=== PATIENT | female | born 1965 | race Caucasian/White ===

== ENCOUNTER 2018-05-27 02:50 | Outpatient (CLI) | payer MEDICAID, SELFPAY ==
[2018-05-27 07:39] LABS: Abs Immature Grans 0.01 k/cumm (0.0-0.09); Absolute Basophil Count 0.03 k/cumm (0.0-0.2); Absolute Eosinophil Count 0.25 k/cumm (0.0-0.7); Absolute Lymphocyte Count 1.74 k/cumm (1.2-3.4); Absolute Neutrophil Count 3.31 k/cumm (1.2-6.7); Basophils % 0.5; Eosinophils % 4.3; HCT 44.4 % (36.0-46.0); HGB 14.9 g/dL (12.0-15.5); Immature Grans % 0.2; Lymphocytes % 29.8; Mean Corp. HGB Concentration 33.6 g/dL (32.0-36.0); Mean Corpuscular Hemoglobin 32.6 pg (27.0-33.0); Mean Corpuscular Volume 97.2 fL (80-95); Mean Platelet Volume 10.7 fL (8.0-11.0); Monocytes % 8.6; Neutrophils % 56.6; Platelet Count 229 x1000/uL (130-400); RBC 4.57 m/cumm (4.00-5.20); RBC Distribution Width 13.1 % (11.7-14.6); White Blood Cell Count 5.84 k/cumm (4.4-10.8)
[2018-05-27 08:20] LABS: ALT 22 U/L (12-78); AST 18 U/L (15-37); Albumin 3.5 g/dL (3.4-5.0); Alkaline Phosphatase 109 U/L (46-116); BUN 11 mg/dL (7-18); Bilirubin, Total 0.5 mg/dL (0.2-1.0); CREATININE 0.81 mg/dL (0.55-1.02); Calcium 8.6 mg/dL (8.5-10.1); Chloride 106 mmol/L (98-107); Cholesterol 248 mg/dL (50-200); Glucose 92 mg/dL (70-100); HDL Cholesterol 56 mg/dL (40-60); LDL CHOLESTEROL 169 mg/dL (<100); Potassium 4.2 mmol/L (3.5-5.1); Sodium 144 mmol/L (136-145); TSH (W/Ref FT4) 1.85 uIU/mL (0.358-3.74); Total Protein 6.2 g/dL (6.4-8.2); Triglyceride 124 mg/dL (30-150)
== END 2018-05-27 03:10 ==
PROVIDERS: PCP Nurse Practitioner Family; Visit Provider Nurse Practitioner Family
DX: Z13.1 Encounter for screening for diabetes mellitus (principal); R06.09 Other forms of dyspnea; E78.5 Hyperlipidemia, unspecified; R63.5 Abnormal weight gain
CPT/HCPCS: 36415; 80053; 80061; 83721; 84443; 85025

== ENCOUNTER 2018-06-03 01:27 | Outpatient (CLI) | payer MEDICAID, SELFPAY ==
--- NOTE | 2018-06-03 09:53 | DI.MAMMO_ITS ---
SYMPTOMS/DIAGNOSIS: SCREENING, Z12.31 MAMMOGRAM: Mammograms were interpreted according to the usual protocol including computer analysis with CAD system, tomosynthesis and C view imaging. The breast tissue is heterogeneously radiodense which lowers the sensitivity of the study. There is no dominant mass. There are no suspicious calcifications. Prior right breast mammograms from 2014 were reviewed and compared with today's study and there has been no significant interval change. No prior images of the left breast are seen. If prior left breast images can be retrieved, then an addendum report will follow. SUMMARY: As it stands today, this is a Category I examination with recommendation for follow up annual screening. Breast density Category C. MQSA ASSESSMENT OF FINDINGS: Negative. Category 1. Patient will receive a letter notifying them of these results. Bi-RADS category C. The breasts are heterogeneously dense, which may obscure small masses.
== END 2018-06-03 01:47 ==
PROVIDERS: PCP Nurse Practitioner Family; Visit Provider Nurse Practitioner Family
DX: Z12.31 Encounter for screening mammogram for malignant neoplasm of breast (principal)
CPT/HCPCS: 77063; 77067

== ENCOUNTER 2018-06-11 00:45 | Outpatient (CLI) | payer MEDICAID, SELFPAY | END 2018-06-11 01:05 | PROVIDERS: PCP Nurse Practitioner Family; Visit Provider Nurse Practitioner Family | DX: R69 Illness, unspecified (principal) ==

== ENCOUNTER 2018-06-17 00:34 | Outpatient (CLI) | payer MEDICAID, SELFPAY ==
--- NOTE | 2018-06-17 08:49 | DI.RAD_ITS ---
SYMPTOMS/DIAGNOSIS: CHRONIC DYSPNEA ON EXERTION, H/O TOBACCO USE, R06.09, Z87.891 PA AND LATERAL CHEST: The heart is normal in size. The lungs are clear. The mediastinal structures and pleura appear intact. SUMMARY: Normal chest.
--- NOTE | 2018-06-17 17:42 | PFT_ITS ---
June 17, 2018 REQUESTING PROVIDER: Cortney Harvey N.P. Spirometry shows no evidence of obstructive airways disease. No bronchodilator testing was carried out. Lung volumes show no evidence of restriction. Diffusion capacity normal. Airways resistance normal. IMPRESSION: Normal pulmonary function study. Clinical correlation recommended.
== END 2018-06-17 00:54 ==
PROVIDERS: PCP Nurse Practitioner Family; Visit Provider Nurse Practitioner Family
DX: R06.09 Other forms of dyspnea (principal); Z87.891 Personal history of nicotine dependence
CPT/HCPCS: 94150; 94726; 94729; 71046; 94010

== ENCOUNTER 2019-07-11 02:13 | Outpatient (CLI) | payer MEDICAID, SELFPAY ==
--- NOTE | 2019-07-11 11:47 | DI.MAMMO_ITS ---
EXAM: MG MAMMO SCREENING CLINICAL HISTORY: screening Z12.39 TECHNIQUE: Mammograms were interpreted according to the usual protocol including computer analysis w [employer] CAD system, tomosynthesis and C-view imaging. COMPARISON: 2018. FINDINGS: The breasts are composed of heterogeneously dense fibroglandular densities, Breast Density category C . No suspicious masses or suspicious microcalcifications are seen. Again noted are benign calcificatio ns bilaterally. There is a stable area of nodularity in the medial left breast. No skin thickening or abnormal axillary lymph nodes are seen. There has been no significant change from prior exams. IMPRESSION: BIRADS Category 2, negative mammogram with benign findings. Yearly screening mammography is recommen ded. BI-RADS Cat 2 - Benign Findings Breast Density - Category C - Heterogeneously dense BREAST DENSITY: The mammogram demonstrates the patient's breast tissue is dense. Dense breast tissue is very common and is not abnormal but dense breast tissue can make it harder to find cancer on a ma mmogram. Also, dense breast tissue may increase their breast cancer risk. This information about the result of the mammogram report was provided to the patient to raise their awareness. Use this report when you speak with the patient about their risks for breast cancer, which includes their family hist ory. At that time, you may recommend for more screening tests (Ultrasound or MRI) as they might be us eful based on their risk. A negative radiographic report should not delay biopsy if a dominant or clinically suspicious mass is present. Up to ten percent of cancers are not identified on mammography. A negative report may reinforce clinical impression. Adenosis and dense breasts may obscure an underlying neoplasm. False positive reports average 6 to 10%.
== END 2019-07-11 02:33 ==
PROVIDERS: PCP Nurse Practitioner Family; Visit Provider Nurse Practitioner Family
DX: Z12.31 Encounter for screening mammogram for malignant neoplasm of breast (principal); R92.1 Mammographic calcification found on diagnostic imaging of breast
CPT/HCPCS: 77063; 77067

== ENCOUNTER 2020-06-22 14:34 | Outpatient (CLI) | payer MEDICAID, SELFPAY ==
--- NOTE | 2020-06-22 10:00 | DI.CT_ITS ---
EXAM: CT HEAD WO CLINICAL HISTORY: New thunderclp HAs x2wks r/o SAH, G44.53. TECHNIQUE: Imaging Protocol: Axial computed tomography images with coronal and sagittal reformatted images were created and reviewed COMPARISON: No exams were available for comparison FINDINGS: Ventricles and Extra axial spaces: Normal in size and morphology for the patient's age. Hemorrhage: None. Cerebral parenchyma: Normal. Midline shift: None. Brainstem/Cerebellum: Normal. Calvarium: Normal. Visualized Paranasal sinuses/Mastoids: Clear. Soft Tissues: Unremarkable. IMPRESSION: No acute intracranial process. RADIATION DOSE DELIVERED: 763.83mGy.cm Total DLP DATA REPOSITORY: All CT scans at this facility are submitted to the National Radiology Data Registry (NRDR) Dose Index Registry (DIR) with the [employer] (ACR). RADIATION OPTIMIZATION: All CT scans at this facility use at least one of these dose optimization te chniques: automated exposure control; mA and/or kV adjustment per patient size (includes targeted exa ms where dose is matched to clinical indication); or iterative reconstruction.
== END 2020-06-22 14:54 ==
PROVIDERS: PCP Nurse Practitioner Family; Visit Provider Nurse Practitioner Family
DX: G44.53 Primary thunderclap headache (principal)
CPT/HCPCS: 70450

== ENCOUNTER 2020-07-27 01:11 | Outpatient (CLI) | payer MEDICAID, SELFPAY ==
--- NOTE | 2020-07-27 08:00 | DI.MAMMO_ITS ---
EXAM: MAMMO SCREENING CLINICAL HISTORY: screening,Z12.39 TECHNIQUE: Mammograms were interpreted according to the usual protocol including computer analysis w [employer] CAD system, tomosynthesis and C-view imaging. COMPARISON: 2018 and 2019 FINDINGS: The breasts are composed of heterogeneously dense fibroglandular densities, Breast Density category C . No suspicious masses or suspicious microcalcifications are seen. Are scattered, coarse, benign-appea ring calcifications. Stable area of nodularity in the medial left breast. No skin thickening or abnormal axillary lymph nodes are seen. There has been no significant change from prior exams. IMPRESSION: BI-RADS Cat 2 - Benign Findings Yearly screening mammography is recommended. Breast Density Category C, heterogeneously Dense. The mammogram demonstrates the patient's breast tissue is dense. Dense breast tissue is very common a nd is not abnormal but dense breast tissue can make it harder to find cancer on a mammogram. Also, de nse breast tissue may increase breast cancer risk. This information about the result of the mammogram report was provided to the patient to raise their awareness. Use this report when you speak with the patient about their risks for breast cancer, which includes their family history. At that time, you may recommend additional screening tests (Ultrasound or MRI) as they might be useful based on their r isk. A negative radiographic report should not delay biopsy if a dominant or clinically suspicious mass is present. Up to ten percent of cancers are not identified on mammography. A negative report may reinforce clinical impression. Adenosis and dense breasts may obscure an underlying neoplasm. False positive reports average 6 to 10%.
== END 2020-07-27 01:31 ==
PROVIDERS: PCP Nurse Practitioner Family; Visit Provider Nurse Practitioner Family
DX: Z12.31 Encounter for screening mammogram for malignant neoplasm of breast (principal)
CPT/HCPCS: 77063; 77067

== ENCOUNTER 2020-07-27 04:48 | Outpatient (CLI) | payer MEDICAID, SELFPAY ==
[2020-07-27 08:00] LABS: Abs Immature Grans 0.01 10^3/uL (0.0-0.06); Absolute Basophil Count 0.03 10^3/uL (0.0-0.2); Absolute Lymphocyte Count 2.77 10^3/uL (1.2-3.4); Absolute Monocyte Count 0.61 10^3/uL (0.1-0.8); Absolute Neutrophil Count 4.18 10^3/uL (1.2-6.7); Basophils % 0.4; Eosinophils % 3.8; HCT 43.8 % (36.0-46.0); HGB 14.4 g/dL (11.2-15.7); Immature Grans % 0.1; Lymphocytes % 35.1; MCH 31.4 pg (27.0-33.0); MCHC 32.9 % (32.0-36.0); MCV 95.4 fL (80-95); MPV 10.9 fL (8.0-11.0); Monocytes % 7.7; Neutrophils % 52.9; Nucleated RBC 0 %; Platelet Count 270 10^3/uL (130-400); RBC 4.59 10^6/uL (3.93-5.22); RDW 13.4 % (11.7-14.6); RDW-SD 47.6 fL
[2020-07-27 08:43] LABS: ALT 23 U/L (14-59); AST 15 U/L (15-37); Alkaline Phosphatase 122 U/L (46-116); Anion Gap 9.3 mmol/L (3-11); BUN 11 mg/dL (7-18); Bilirubin, Total 0.6 mg/dL (0.2-1.0); CO2 27.7 mmol/L (21.0-32.0); CREATININE 0.78 mg/dL (0.55-1.02); Calcium 9.4 mg/dL (8.5-10.1); Chloride 103 mmol/L (98-107); Glucose 94 mg/dL (74-106); Sodium 140 mmol/L (136-145); TSH (W/Ref FT4) 1.48 uIU/mL (0.36-3.74); Total Protein 6.9 g/dL (6.4-8.2)
[2020-07-30 10:34] LABS: HIV-1/2 Ag & Ab Screen Negative (Negative)
[2020-07-30 10:57] LABS: Hepatitis C Ab w Rflx HCV PCR Negative (Negative)
== END 2020-07-27 05:08 ==
PROVIDERS: PCP Nurse Practitioner Family; Visit Provider Nurse Practitioner Family
DX: R53.83 Other fatigue (principal); Z11.4 Encounter for screening for human immunodeficiency virus [HIV]; Z11.59 Encounter for screening for other viral diseases
CPT/HCPCS: 36415; 80053; 86803; 87389; 84443; 85025

== ENCOUNTER 2020-08-03 04:16 | Outpatient (CLI) | payer MEDICAID, SELFPAY ==
--- NOTE | 2020-08-03 08:05 | DI.MRI_ITS ---
CLINICAL HISTORY: new thunderclap headaches,G44.53. TECHNIQUE: Multiplanar multisequence MRA of the brain was performed. COMPARISON: None. FINDINGS: Carotid Arteries: No aneurysm, occlusion or significant stenosis. Anterior Cerebral Arteries: Right: No aneurysm, occlusion or significant stenosis. Left: No aneurysm, occlusion or significant stenosis. Middle Cerebral Arteries: Right: No aneurysm, occlusion or significant stenosis. Left: No aneurysm, occlusion or significant stenosis. Posterior Cerebral Arteries: Right: No aneurysm, occlusion or significant stenosis. Left: No aneurysm, occlusion or significant stenosis. Vertebral Arteries: Right: No aneurysm, occlusion or significant stenosis. Left: No aneurysm, occlusion or significant stenosis. Basilar Artery: No aneurysm, occlusion or significant stenosis. IMPRESSION: Normal MRA examination of the [place]. DATA REPOSITORY:
--- NOTE | 2020-08-03 08:45 | DI.MRI_ITS ---
EXAM: MR BRAIN WO CLINICAL HISTORY: new thunderclap headaches,G44.53 TECHNIQUE: Multiplanar multisequence MRI of the brain was performed. COMPARISON: CT brain dated 06/22/2020. FINDINGS: VENTRICLES AND EXTRA AXIAL SPACES: Normal in size and morphology for the patient's age. MIDLINE SHIFT: None. CEREBRAL PARENCHYMA: No focus of restricted diffusion to suggest acute infarct. No space-occupying le olga identified. There are few scattered foci of hyperintense signal on the T2 and FLAIR images in th e white matter. HEMORRHAGE: None. BRAINSTEM/CEREBELLUM: Normal. CALVARIUM: Normal. VISUALIZED PARANASAL SINUSES/MASTOIDS:Clear. [place]: Normal flow void. [place]: Unremarkable. OTHER FINDINGS: None. IMPRESSION: There are few scattered foci of hyperintense signal on the T2 and FLAIR images in the white matter. D ifferential considerations include, but are not limited to small vessel ischemic disease, migraine, v asculitis, or demyelinating processes. DATA REPOSITORY:
== END 2020-08-03 04:36 ==
PROVIDERS: PCP Nurse Practitioner Family; Visit Provider Nurse Practitioner Adult Health
DX: G44.53 Primary thunderclap headache (principal)
CPT/HCPCS: 70544; 70551

== ENCOUNTER 2021-07-02 08:55 | Outpatient (CLI) | payer MEDICAID, SELFPAY ==
[2021-07-02 15:17] LABS: Anion Gap 12.7 mmol/L (3-11); BUN 11 mg/dL (7-18); CO2 25.3 mmol/L (21.0-32.0); CREATININE 0.6 mg/dL (0.55-1.02); Calcium 8.9 mg/dL (8.5-10.1); Calculated LDL 144 mg/dL (<100); Chloride 106 mmol/L (98-107); Cholesterol 273 mg/dL (<200); Glucose 104 mg/dL (74-106); HDL Cholesterol 51 mg/dL (40-60); Potassium 3.8 mmol/L (3.5-5.1); Sodium 144 mmol/L (136-145); Triglyceride 393 mg/dL (<150)
== END 2021-07-02 08:56 | disposition home or self-care (01) ==
LOC: LBO 08:55
PROVIDERS: PCP Nurse Practitioner Family; Visit Provider Nurse Practitioner Family
DX: E78.5 Hyperlipidemia, unspecified (principal); R09.89 Other specified symptoms and signs involving the circulatory and respiratory systems; Z13.1 Encounter for screening for diabetes mellitus
CPT/HCPCS: 36415; 80048; 80061

== ENCOUNTER 2022-05-02 10:46 | Outpatient (CLI) | payer MEDICAID, SELFPAY ==
--- NOTE | 2022-05-02 10:45 | RT.EKG_ITS ---
APPROVED REPORT Exam: Resting ECG Reason for Exam: Chest tightness Patient Location: O HR:75 bpm ECG Measurements Heart Rate 75 AXIS SC 149 P 57 QRSd 84 QRS 67 QT 410 T 85 QTc 458 Conclusion Sinus rhythm...normal P axis, V-rate 50- 99 Normal Electrocardiogram
== END 2022-05-02 10:47 | disposition home or self-care (01) ==
LOC: DI.KIM 10:47
PROVIDERS: PCP Nurse Practitioner Family; Visit Provider Nurse Practitioner Family
DX: R07.89 Other chest pain (principal)
CPT/HCPCS: 93010

== ENCOUNTER → 2022-05-05 01:37 | Outpatient (CLI) | payer MEDICAID, SELFPAY ==
--- NOTE | 2022-05-05 14:00 | ETT_ITS ---
APPROVED REPORT Exam: Exercise Treadmill Patient Location: Out-Patient Room/Bed: Stress Nurse: Arelis Suarez RN Ordering Provider:NEAL JONES, Contact Number: [phone] BMI: 23.07 Baseline Rhythm: Sinus Rhythm Comment: PVC's, T wave inversion in aVL Indications: Chest Tightness Medical History Medical History: Labile HTN, HLD, former tobacco use, chronic back pain Cardiac Medications: Propanolol, gabapentin Allergies: Hydromorphone, PNC's, vancomycin, amoxicillin Cardiac Risk Factors: HTN, HLD, Former smoker Previous Cardiac Procedures: None Pretest Chest Pain Characteristics: None Exercise History: Indeterminate Physical Disabilities: None Lung Sounds: LCTA Heart Sounds: S1/S2 Stress Test Details Test: Exercise stress testing was performed using a Jono protocol. Rest Stress HR Resting HR Supine: 90 bpm Max Heart Rate (APMHR): 165 bpm Resting HR Standin bpm Target HR (85% APMHR): 140 bpm Max HR Achieved: 143 bpm % of APMHR: 86 Recovery HR: 98 bpm HR response to stress: Normal HR response to stress BP Resting BP Supine: 168/98 mmHg Resting BP Standin/104 mmHg Max BP: 220/118 mmHg Recovery BP: 168/94 mmHg BP response to stress: Normal blood pressure response to stress. Comment: Pt very anxious about test, Propanolol held prior to test ECG Resting ECG: Sinus Rhythm Ectopy: PVC's Stress ECG: Sinus Tachycardia ST Change: Horizontal ST depression Lead(s): inferior leads Stage: [address] Deviation: 1-1.5 mm Arrhythmia: None Recovery ECG: Sinus Rhythm Recovery ST Change: Upsloping ST depression Lead(s): inferior leads Recovery ST Deviation: 1-1.5 mm Recovery Arrhythmia: Rare PVC Comment: Upsloping ST depression resolving by 2 minutes into recovery Clinical Reason for Termination: Fatigue, Elevated BP Stress Symptoms: General Fatigue Exercise duration: 7 min47 sec Highest Stage Reached: Stage 3: 3.4 mph at 14% grade. Exercise capacity: 9.81 METs Angina Score: None [place] Treadmill Score: 3.5 Rate Pressure Product: [id number] Stress ECG Conclusion 1. Resting electrocardiogram was within normal limits 2. Patient exercised on the Jono protocol and completed a workload of 9.81 METS, stopping due to fat igue 3. Normal heart rate and blood pressure response to exercise. Patient achieved 86% of predicted hear t rate for age 4. The electrocardiographic portion of the test showed no evidence of myocardial ischemia 5. Rare PVCs were seen [place] Treadmill Score is 3.5 which is Moderate risk. Stress Test Summary STAGE Time (mins) Speed (mph) Grade (%) HR BP SpO2 SYMPTOMS METS Supine 90 168/98 Standing 97 154/104 1 3 1.7 10 122 184/110 4.5 2 6 2.5 12 132 200/110 7 3 9 3.4 14 141 220/118 10 1 min recovery 126 210/110 3 min recovery 94 188/96 6 min recovery 98 168/94 Pt presented to the stress lab quite anxious for test. 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 Pt tolerated the stress test well. Blood pressure and heart rate retu rned to pre-test baseline within 5 minutes of test completion.
== END ==
PROVIDERS: PCP Nurse Practitioner Family; Visit Provider Nurse Practitioner Family
DX: R07.89 Other chest pain (principal); I10 Essential (primary) hypertension; E78.5 Hyperlipidemia, unspecified
CPT/HCPCS: 93017

== ENCOUNTER 2022-05-09 00:52 | Outpatient (CLI) | payer MEDICAID, SELFPAY ==
--- OUTSIDE RECORDS SUMMARY | 2022-05-09 01:27 | XMS_ITS | Encounter Summary ---
:1965 Author Organization [facility] Address [address] [place] [address] Care Team Providers Name Role Phone Unknown, Provider Primary Care Provider Encounter Details Date Type Department Care Team Description 07/27/[address] [facility] Outr Resulting Lab, Pathology & Laboratory Provider [facility] [address] [place] [address] Social History Tobacco Use Types Packs/Day Years Used Date Never Assessed Sex Assigned at Date Recorded Not on file documented as of this encounter Plan of Treatment Not on filedocumented as of this encounter Procedures Procedure Name Priority Date/Time Associated Comments Diagnosis HIV 1/2 ANTIGEN AND Routine 07/27/2020 7:36 EST R esults for this ANTIBODY, 4TH procedure are in GENERATION the results section. documented in this encounter Results HIV 1/2 ANTIGEN AND ANTIBODY, 4TH GENERATION (07/27/2020 7:36 EST) HIV 1 and 2 Negative Negative [facility] Antibody/p24 Comment: LABORATORY Antigen, 4th If acute HIV-1 infection is suspected in a high risk ??patient, submit plasma specimen for HIV-1 RNA quantitation test. SERV ICES Generation Fourth Generation assay performed on the Siemens Influitivea ur. Specimen Blood - Venous blood (substance) Performing Organization Address City/State/ZIP Code Phon e Number [facility] [address] [place] [address] SERVICES documented in this encounter Visit Diagnoses Not on filedocumented in this encounter Care Teams Barrel Driller Relationship Specialty Start Date End Date Unknown, Provider, PCP - General 07/25/18 documented as of this encounter
--- OUTSIDE RECORDS SUMMARY | 2022-05-09 01:27 | XMS_ITS | Encounter Summary ---
:[address] [facility] Address [address] [place] [address] Care Team Providers Name Role Phone John Martinez MD Primary Care Provider Unavailable Encounter Details Date Type Department Care Team Description 11/09/2006 Results Only [facility] - Tomasa Fuentes PA conversion [address] [place] [address] Social History Tobacco Use Types Packs/Day Years Used Date Never Assessed Sex Assigned at Date Recorded Not on file documented as of this encounter Plan of Treatment Not on filedocumented as of this encounter Procedures Procedure Name Priority Date/Time Associated Diagnosis Comme nts CYTOPATHOLOGY Routine 11/09/2006 0:00 EDT Results for this procedure are i n the results section . documented in this encounter Results CYTOPATHOLOGY (11/09/2006 0:00 EDT) Pathology Report: CYTOPATHOLOGY REPORT [facility] Reports generated via electronic interface contain tamiko ginal data; however they are lacking the format of the original re port. Caution should be taken when reading/interpreting unfo rmatted reports. Name: ? CHARISSE OTERO ? Accession #: ? [id number] : ? 1965 (Age: 41) ??F ?Collect Date: ? 10/16 Location: ? [facility] ? Receive Date : ? 11/16/2006 Provider: ?JONO EDMONDS Copy to: ? Specimen/Source: ?ThinPrep Pap Test, E ndocervix, processed on [employer] ThinPrep Imaging System, with manual evaluation Last Menstrual Period: ? 10/18/06 Hormonal/Contraceptive Status: ? Tubal ligation: 2006 Other: ? HPVA - HPV testing requested if ASC-US on the current ThinPrep Pap test. ? SPECIMEN ADEQUACY ? Satisfactory for Evaluation - transformation zone component present GENERAL CATEGORIZATION ? Negative for Intraepithelial Lesion or Malignan cy ? Document reviewed and electronically signed by: ? KANG Fontenot(ASCP) ? Report Date: ??11/18/2006 07:38 End of Report Specimen Performing Organization Address City/State/ZIP Code Phon e Number [facility] [address] [place] [address] SERVICES [facility] [address] [place] [address] documented in this encounter Visit Diagnoses Not on filedocumented in this encounter Care Teams Boat Designer Relationship Specialty Start Date End Date John Martinez MD PCP - General 01/29/09 07/24/18 documented as of this encounter
--- OUTSIDE RECORDS SUMMARY | 2022-05-09 01:27 | XMS_ITS | Encounter Summary ---
:1965 Author Organization [facility] Address [address] [place] [address] Care Team Providers Name Role Phone John Martinez MD Primary Care Provider Unavailable Encounter Details Date Type Department Care Team Description 09/10/2004 Results Only [facility] - Tomasa Fuentes PA conversion [address] [place] [address] Social History Tobacco Use Types Packs/Day Years Used Date Never Assessed Sex Assigned at Date Recorded Not on file documented as of this encounter Plan of Treatment Not on filedocumented as of this encounter Procedures Procedure Name Priority Date/Time Associated Diagnosis Comme nts CYTOPATHOLOGY Routine 09/10/2004 0:00 EST Results for this procedure are i n the results section . documented in this encounter Results CYTOPATHOLOGY (09/10/2004 0:00 EST) Pathology Report: CYTOPATHOLOGY REPORT [facility] Reports generated via electronic interface contain tamiko ginal data; however they are lacking the format of the original re port. Caution should be taken when reading/interpreting unfo rmatted reports. Name: ? CHARISSE OTERO ? Accession #: ? [id number] : ? 1965 (Age: 38) ??F ?Collect Date: ? 08/18 Location: ? [facility] ? Receive Date : ? 09/12/2004 Provider: ?JONO EDMONDS Copy to: ? Specimen/Source: ?ThinPrep Pap Test, Endocer vix Last Menstrual Period: ? 09/02/04 Hormonal/Contraceptive Status: ? Control Pills Other: ? DHPV - HPV testing requested if ASCUS/ALBERT on the curr ent ThinPrep Pap test. ? SPECIMEN ADEQUACY ? Satisfactory for Evaluation - transformation zone component present GENERAL CATEGORIZATION ? Negative for Intraepithelial Lesion or Malignan cy INTERPRETATION ? Shift in diamond present suggestive of bacterial vaginosis. ? Document reviewed and electronically signed by: ? Pina Santoro, [facility](ASCP) ? Report Date: ??09/16/2004 13:51 End of Report Specimen Performing Organization Address City/State/ZIP Code Phon e Number [facility] [address] [place] [address] SERVICES [facility] [address] [place] [address] documented in this encounter Visit Diagnoses Not on filedocumented in this encounter Care Teams Form Carpenter Relationship Specialty Start Date End Date John Martinez MD PCP - General 01/29/09 07/24/18 documented as of this encounter
--- OUTSIDE RECORDS SUMMARY | 2022-05-09 01:27 | XMS_ITS | Encounter Summary ---
:1965 Author Organization [facility] Address [address] [place] [address] Care Team Providers Name Role Phone John Martinez MD Primary Care Provider Unavailable Encounter Details Date Type Department Care Team Description 09/12/2005 Results Only [facility] - Tomasa Fuentes PA conversion [address] [place] [address] Social History Tobacco Use Types Packs/Day Years Used Date Never Assessed Sex Assigned at Date Recorded Not on file documented as of this encounter Plan of Treatment Not on filedocumented as of this encounter Procedures Procedure Name Priority Date/Time Associated Diagnosis Comme nts CYTOPATHOLOGY Routine 09/12/2005 0:00 EST Results for this procedure are i n the results section . documented in this encounter Results CYTOPATHOLOGY (09/12/2005 0:00 EST) Pathology Report: CYTOPATHOLOGY REPORT [facility] Reports generated via electronic interface contain tamiko ginal data; however they are lacking the format of the original re port. Caution should be taken when reading/interpreting unfo rmatted reports. Name: ? CHARISSE OTERO ? Accession #: ? [id number] : ? 1965 (Age: 39) ??F ?Collect Date: ? 08/18 Location: ? [facility] ? Receive Date : ? 09/16/2005 Provider: ?JONO EDMONDS Copy to: ? Specimen/Source: ?ThinPrep Pap Test, E ndocervix, processed on [employer] ThinPrep Imaging System, with manual evaluation Last Menstrual Period: ? 09/01/05 Hormonal/Contraceptive Status: ? Control Pills Other: ? HPVA - HPV testing requested if ASC-US on the current ThinPrep Pap test. ? SPECIMEN ADEQUACY ? Satisfactory for Evaluation - transformation zone component present GENERAL CATEGORIZATION ? Negative for Intraepithelial Lesion or Malignan cy INTERPRETATION ? Shift in diamond present suggestive of bacterial vaginosis. ? Document reviewed and electronically signed by: ? KANG Lorenzana(ASCP)(IAC) ? Report Date: ??09/17/2005 11:33 End of Report Specimen Performing Organization Address City/State/ZIP Code Phon e Number [facility] [address] [place] [address] SERVICES [facility] [address] [place] [address] documented in this encounter Visit Diagnoses Not on filedocumented in this encounter Care Teams Paste Up Artist Apprentice Relationship Specialty Start Date End Date John Martinez MD PCP - General 01/29/09 07/24/18 documented as of this encounter
--- OUTSIDE RECORDS SUMMARY | 2022-05-09 01:27 | XMS_ITS | Encounter Summary ---
:[address] [facility] Address [address] [place] [address] Care Team Providers Name Role Phone John Martinez MD Primary Care Provider Unavailable Encounter Details Date Type Department Care Team Description 07/21/2002 Results Only [facility] - Tyler Storey MD conversion [address] [place] [id number] Social History Tobacco Use Types Packs/Day Years Used Date Never Assessed Sex Assigned at Date Recorded Not on file documented as of this encounter Plan of Treatment Not on filedocumented as of this encounter Procedures Procedure Name Priority Date/Time Associated Diagnosis Comme nts CYTOPATHOLOGY Routine 07/21/2002 0:00 EST Results for this procedure are i n the results section . documented in this encounter Results CYTOPATHOLOGY (07/21/2002 0:00 EST) Pathology Report: CYTOPATHOLOGY REPORT [facility] Reports generated via electronic interface contain tamiko ginal data; however they are lacking the format of the original re port. Caution should be taken when reading/interpreting unfo rmatted reports. Name: ? CHARISSE OTERO ? Accession #: ? [id number] : ? 1965 (Age: 36) ??F ?Collect Date: ? 12/2001 Location: ? [facility] ? Receive Date : ? 07/22/2002 Provider: ?TYLER GONSALES MD Copy to: ? Specimen/Source: ?ThinPrep Pap Test, Cervix/ Endocervix Last Menstrual Period: ? 05/27/02 ? SPECIMEN ADEQUACY ? Satisfactory for Evaluation - transformation zone component present GENERAL CATEGORIZATION ? Negative for Intraepithelial Lesion or Malignan cy ? Document reviewed and electronically signed by: ? KANG Rock(ASCP) ? Report Date: ??07/25/2002 10:51 End of Report Specimen Performing Organization Address City/State/ZIP Code Phon e Number [facility] [address] [place] [address] SERVICES [facility] [address] [place] [address] documented in this encounter Visit Diagnoses Not on filedocumented in this encounter Care Teams Helpdesk Specialist Relationship Specialty Start Date End Date John Martinez MD PCP - General 01/29/09 07/24/18 documented as of this encounter
--- OUTSIDE RECORDS SUMMARY | 2022-05-09 01:27 | XMS_ITS | Encounter Summary ---
:1965 Author Organization [facility] Address [address] [place] [address] Care Team Providers Name Role Phone John Martinez MD Primary Care Provider Unavailable Encounter Details Date Type Department Care Team Description 08/13/2001 Results Only [facility] - Tyler Storey MD conversion [address] [place] [address] Social History Tobacco Use Types Packs/Day Years Used Date Never Assessed Sex Assigned at Date Recorded Not on file documented as of this encounter Plan of Treatment Not on filedocumented as of this encounter Procedures Procedure Name Priority Date/Time Associated Diagnosis Comme nts CYTOPATHOLOGY Routine 08/13/2001 0:00 EST Results for this procedure are i n the results section . documented in this encounter Results CYTOPATHOLOGY (08/13/2001 0:00 EST) Pathology Report: CYTOPATHOLOGY REPORT [facility] Reports generated via electronic interface contain tamiko ginal data; however they are lacking the format of the original re port. Caution should be taken when reading/interpreting unfo rmatted reports. Name: ? CHARISSE OTERO ? Accession #: ? [id number] : ? 1965 (Age: 35) ??F ?Collect Date: ? 07/18 Location: ? [facility] ? Receive Date : ? 08/16/2001 Provider: ?TYLER GONSALES MD Copy to: ? Specimen/Source: ?ThinPrep Pap Test, Cervix/ Endocervix Last Menstrual Period: ? 07/26/01 Other: ? Additional clinical information: , paps NL ? SPECIMEN ADEQUACY ? Satisfactory for Evaluation - transformation zone component present GENERAL CATEGORIZATION ? Negative for Intraepithelial Lesion or Malignan cy ? Document reviewed and electronically signed by: ? Arabella Field, ??SCT(ASCP) ? Report Date: ??08/19/2001 13:43 End of Report Specimen Performing Organization Address City/State/ZIP Code Phon e Number [facility] [address] [place] [address] SERVICES [facility] [address] [place] [address] documented in this encounter Visit Diagnoses Not on filedocumented in this encounter Care Teams Stitcher Set Up Operator Automatic Relationship Specialty Start Date End Date John Martinez MD PCP - General 01/29/09 07/24/18 documented as of this encounter
--- OUTSIDE RECORDS SUMMARY | 2022-05-09 01:27 | XMS_ITS | Encounter Summary ---
:[address] [facility] Address [address] [place] [address] Care Team Providers Name Role Phone John Martinez MD Primary Care Provider Unavailable Encounter Details Date Type Department Care Team Description 07/16/2018 Results Only [facility]- Leana Wade MD [phone] [address] [place] [address] (Wo rk) Social History Tobacco Use Types Packs/Day Years Used Date Never Assessed Sex Assigned at Date Recorded Not on file documented as of this encounter Plan of Treatment Not on filedocumented as of this encounter Procedures Procedure Name Priority Date/Time Associated Diagnosis Comme [facility] SURGICAL PATHOLOGY Routine 07/16/2018 15:39 Resul ts for this EST procedure are i n the results section. documented in this encounter Results SURGICAL PATHOLOGY (07/16/2018 15:39 EST) Pathology Report: SURGICAL PATHOLOGY REPORT [facility] Reports generated via electronic interface contain tamiko ginal data; LABORATORY however they are lacking the format of the original re port. SERVICES Caution should be taken when reading/interpreting unfo rmatted reports. Name: ? CHARISSE LEE ? Accession #: ? [id number] ? : ? 1965 (Age: [age]) ??F ? Collect Date: ? 07/16/2018 ? Location: ? [facility] ? Receive Date: ? 8 ? Provider: LEANA GONZALEZ MD Copy to: ? Final Pathologic Diagnosis: RECTUM, POLYPS, POLYPECTOMIES: - Hyperplastic polyps. ?? Document reviewed and electronically signed by: PHAM QUESADA MD Report ??Date: 07/20/2018 16:53 By the signature above, the attending physician certif ies that he/she has personally conducted a gross and/or microscopic examin ation of the described specimens and rendered or confirmed the above diagnosi s. Specimen(s) Received: Four rectal polyps Clinical History: Screening; clinical diagnosis code: ??Z12.11 Gross Description: ? Received in formalin labelled with proper patient identification (initials B, A) and four rectal polyp s are four villegas irregular tissues ranging from 0.2 x 0.1 x 0.1 cm to 0.4 x 0.1 x 0.1 cm. Entirely submitted in 1 and 2. GREY Pan (ASCP) 07/19/2018 4:29 PM End of Report Specimen Performing Organization Address City/State/ZIP Code Phon e Number [facility] [address] [place] [address] SERVICES documented in this encounter Visit Diagnoses Not on filedocumented in this encounter Care Teams Passenger Car Inspector Relationship Specialty Start Date End Date John Martinez MD PCP - General 01/29/09 07/24/18 documented as of this encounter
--- OUTSIDE RECORDS SUMMARY | 2022-05-09 01:27 | XMS_ITS | Clinical Summary ---
:1965 Author Organization [facility] Address [address] [place] [address] Care Team Providers Name Role Phone Unknown, Provider Primary Care Provider Social History Tobacco Use Types Packs/Day Years Used Date Never Assessed Sex Assigned at Date Recorded Not on file Plan of Treatment Not on file Insurance Payer Benefit Plan Subscriber ID Effective Phone Address Typ e / Group Dates MEDICAID ACO MEDICAID ACO [id number] 2019-Pres [phone] [address] Medicaid [place] ent [address] [facility] [id number] (Work) [id number] Care Teams Forestry Hunter Relationship Specialty Start Date End Date Unknown, Provider, PCP - General 07/25/18
--- OUTSIDE RECORDS SUMMARY | 2022-05-09 01:27 | XMS_ITS | Encounter Summary ---
:1965 Author Organization [facility] Address [address] [place] [address] Care Team Providers Name Role Phone John Martinez MD Primary Care Provider Unavailable Encounter Details Date Type Department Care Team Description 07/31/2000 Results Only [facility] - Tyler Storey MD conversion [address] [place] [address] Social History Tobacco Use Types Packs/Day Years Used Date Never Assessed Sex Assigned at Date Recorded Not on file documented as of this encounter Plan of Treatment Not on filedocumented as of this encounter Procedures Procedure Name Priority Date/Time Associated Diagnosis Comme nts CYTOPATHOLOGY Routine 07/31/2000 0:00 EST Results for this procedure are i n the results section . documented in this encounter Results CYTOPATHOLOGY (07/31/2000 0:00 EST) Pathology Report: CYTOPATHOLOGY REPORT [facility] Reports generated via electronic interface contain tamiko ginal data; however they are lacking the format of the original re port. Caution should be taken when reading/interpreting unfo rmatted reports. Name: ? CHARISSE OTERO ? Accession #: ? [id number] : ? 1965 (Age: 34) ??F ?Collect Date: ? 07/17 Location: ? [facility] ? Receive Date : ? 08/04/2000 Provider: ?TYLER GONSALES MD Copy to: ? Specimen/Source: ?ThinPrep Pap Test, Cervix/ Endocervix Last Menstrual Period: ? 07/13/00 ? SPECIMEN ADEQUACY ? Satisfactory for evaluation. GENERAL CATEGORIZATION ? Within Normal Limits ? Document reviewed and electronically signed by: ? KANG Becerra(ASCP) ? Report Date: ??08/04/2000 15:31 End of Report Specimen Performing Organization Address City/State/ZIP Code Phon e Number [facility] [address] [place] [address] SERVICES [facility] [address] [place] [address] documented in this encounter Visit Diagnoses Not on filedocumented in this encounter Care Teams Executive Chairman Of The Board Relationship Specialty Start Date End Date John Martinez MD PCP - General 01/29/09 07/24/18 documented as of this encounter
--- OUTSIDE RECORDS SUMMARY | 2022-05-09 01:27 | XMS_ITS | Encounter Summary ---
:[address] [facility] Address [address] [place] [address] Care Team Providers Name Role Phone Unknown, Provider Primary Care Provider Encounter Details Date Type Department Care Team Description 07/27/2020 Lab Requisition [facility] Outr Resulting Lab, Pathology & Laboratory Provider [facility] [address] [place] [address] Social History Tobacco Use Types Packs/Day Years Used Date Never Assessed Sex Assigned at Date Recorded Not on file documented as of this encounter Plan of Treatment Not on filedocumented as of this encounter Procedures Procedure Name Priority Date/Time Associated Diagnosis Comme nts HEPATITIS C AB W Routine 07/27/2020 7:36 EST Resu lts for this REFLEX TO HCV RNA procedure are in BY PCR the results section. documented in this encounter Results HEPATITIS C AB W REFLEX TO HCV RNA BY PCR (07/27/2020 7:36 EST) Pathologist Sig nature Hep C Antibody Negative Negative [facility] Specimen Blood - Venous blood (substance) Performing Organization Address City/State/ZIP Code Phon e Number [facility] [address] [place] [address] SERVICES documented in this encounter Visit Diagnoses Not on filedocumented in this encounter Care Teams Non Destructive Testing Engineer Relationship Specialty Start Date End Date Unknown, Provider, PCP - General 07/25/18 documented as of this encounter
[2022-05-09 07:42] LABS: Abs Immature Grans 0.03 10^3/uL (0.0-0.06); Absolute Basophil Count 0.05 10^3/uL (0.0-0.2); Absolute Eosinophil Count 0.25 10^3/uL (0.0-0.7); Absolute Lymphocyte Count 2.21 10^3/uL (1.2-3.4); Absolute Monocyte Count 0.64 10^3/uL (0.1-0.8); Absolute Neutrophil Count 4.27 10^3/uL (1.2-6.7); Basophils % 0.7; Eosinophils % 3.4; HGB 15.5 g/dL (11.2-15.7); Immature Grans % 0.4; Lymphocytes % 29.7; MCH 32.5 pg (27.0-33.0); MCHC 32.3 % (32.0-36.0); MCV 101 fL (80-95); MPV 10.8 fL (8.0-11.0); Monocytes % 8.6; Neutrophils % 57.2; Platelet Count 249 10^3/uL (130-400); RBC 4.77 10^6/uL (3.93-5.22); RDW 12.5 % (11.7-14.6); RDW-SD 47.5 fL; WBC 7.45 10^3/uL (4.4-10.8)
[2022-05-09 08:34] LABS: ALT 46 U/L (14-59); AST 29 U/L (15-37); Albumin 3.7 g/dL (3.4-5.0); Alkaline Phosphatase 143 U/L (46-116); Anion Gap 9.2 mmol/L (3-11); BUN 9 mg/dL (7-18); Bilirubin, Total 0.6 mg/dL (0.2-1.0); CO2 28.8 mmol/L (21.0-32.0); CREATININE 0.8 mg/dL (0.55-1.02); Calcium 9.7 mg/dL (8.5-10.1); Calculated LDL 158 mg/dL (<100); Chloride 104 mmol/L (98-107); Cholesterol 262 mg/dL (<200); Estimated GFR 86.96 (mL/min/1.73m2); Glucose 145 mg/dL (74-106); HDL Cholesterol 63 mg/dL (40-60); Potassium 3.9 mmol/L (3.5-5.1); Sodium 142 mmol/L (136-145); Total Protein 7.2 g/dL (6.4-8.2); Triglyceride 208 mg/dL (<150)
[2022-05-11 19:29] LABS: Lab Add On Test DONE
== END 2022-05-09 00:53 | disposition home or self-care (01) ==
LOC: LBO 00:52
PROVIDERS: Student in an Organized Health Care Education/Training Program; PCP Nurse Practitioner Family; Referring Provider Nurse Practitioner Family; Visit Provider Nurse Practitioner Family
DX: R07.89 Other chest pain (principal); R71.8 Other abnormality of red blood cells; R73.09 Other abnormal glucose; E78.5 Hyperlipidemia, unspecified
CPT/HCPCS: 36415; 80053; 80061; 82607; 82746; 83036; 84443; 85025

== ENCOUNTER → 2022-05-20 00:53 | Outpatient (CLI) | payer MEDICAID, SELFPAY ==
--- NOTE | 2022-05-20 07:30 | DI.RAD_ITS ---
Exam(s) XR CHEST 2V PA LATERAL EXAM: XR CHEST 2V PA LATERAL CLINICAL HISTORY: chest/LUE tightness; r/o acute cardiopulm abnorm,other chest pain,r07.89. TECHNIQUE: 2D digital imaging was performed. COMPARISON: CR XR CHEST 2V PA LATERAL from 06/17/2018 FINDINGS: 2 views: Heart size is normal. The mediastinum is not widened. Lungs are clear. No infiltrates nor pleural effusions. IMPRESSION: No acute pulmonary findings. DATA REPOSITORY: RADIATION DOSE DELIVERED:
--- NOTE | 2022-05-20 07:30 | DI.US_ITS ---
Exam(s) US SOFT TISS EXTREMITY/GROIN EXAM: US SOFT TISS EXTREMITY/GROIN CLINICAL HISTORY: palpable tender lump R thigh,r22.41. TECHNIQUE: Ultrasound was performed using standard protocol. COMPARISON: None FINDINGS: Dedicated ultrasound examination of the area of concern on the anterolateral right thigh was performe d. Images are submitted for interpretation.. There is a relatively well-defined slightly lobulated hyperechoic subcutaneous mass measuring approxi mately 2 x 1 x 1.5 cm. It is avascular . IMPRESSION: As above. This is most probably a lipoma. Recommend repeat scan in a few months time to ensure stab ility. DATA REPOSITORY:
== END ==
PROVIDERS: PCP Nurse Practitioner Family; Visit Provider Nurse Practitioner Family
DX: R22.41 Localized swelling, mass and lump, right lower limb (principal); R07.89 Other chest pain
CPT/HCPCS: 76882; 71046

== ENCOUNTER 2022-05-20 01:57 | Outpatient (CLI) | payer MEDICAID, SELFPAY ==
[2022-05-20 09:17] LABS: Folate 8.5 ng/mL (8.6-20.0); Vitamin B12 676 pg/mL (193-986)
== END 2022-05-20 01:58 | disposition home or self-care (01) ==
PROVIDERS: PCP Nurse Practitioner Family; Visit Provider Nurse Practitioner Family
DX: D52.8 Other folate deficiency anemias; R71.8 Other abnormality of red blood cells
CPT/HCPCS: 36415; 82607; 82746

== ENCOUNTER 2022-11-24 00:28 | Outpatient (CLI) | payer MEDICAID, SELFPAY ==
--- NOTE | 2022-11-24 06:30 | DI.US_ITS ---
Exam(s) US SOFT TISSUE EXTREMITY EXAM: US SOFT TISSUE EXTREMITY CLINICAL HISTORY: 6 mo f/u suspected lipoma to ensure stablility,r22.41,mass rt lower ext,. TECHNIQUE: Ultrasound was performed using standard protocol. COMPARISON: US US SOFT TISS EXTREMITY/GROIN from 05/20/2022 FINDINGS: Sonographic assessment utilizing grayscale and color Doppler imaging was performed and targeted to th e area of clinical concern. There has been no change in appearance of the hyperechoic mass in the mid lateral right thigh. It me asures 1.8 by 1 cm. IMPRESSION: Stable hyperechoic mass in the right thigh. This may represent a lipoma. DATA REPOSITORY:
--- NOTE | 2022-11-24 07:39 | DI.MAMMO_ITS ---
Exam(s) MAMMO SCREENING EXAM: MAMMO SCREENING CLINICAL HISTORY: screening,z12.39 TECHNIQUE: Bilateral full field digital CC and MLO mammographic images were obtained with 3D tomosyn thesis and utilizing computer aided detection (CAD). COMPARISON: Available for comparison. FINDINGS: Masses/Architectural Distortion: There has been interval increase in size of a nodule in the medial c entral right breast now measuring 6 mm. Microcalcifications: No suspicious pleomorphic-type are seen. Skin Thickening/Nipple Retraction: None. IMPRESSION: 1. Interval increase in size of nodule in the medial central right breast. This area should be furth er evaluated with spot compression views. 2. Limited right breast ultrasound may also be indicated at that time. BI-RADS Category 0 - Assessment Incomplete: Need additional imaging evaluation Breast Density - Category C - Heterogeneously dense Breast density category C or D implies that the patient has dense breast tissue. Dense breast tissue is very common and is not abnormal but dense breast tissue can make it harder to find cancer on a ma mmogram. Also, dense breast tissue may increase their breast cancer risk. This information about the result of the mammogram report was provided to the patient to raise their awareness. Use this report when you speak with the patient about their risks for breast cancer, which includes their family hist ory. At that time, you may recommend for more screening tests (Ultrasound or MRI) as they might be us eful based on their risk. A negative radiographic report should not delay biopsy if a dominant or clinically suspicious mass is present. Up to ten percent of cancers are not identified on mammography. A negative report may reinforce clinical impression. Adenosis and dense breasts may obscure an underlying neoplasm. False positive reports average 6 to 10%. Patient will receive a letter notifying them of these results.
== END 2022-11-24 00:48 ==
LOC: DI 00:28
PROVIDERS: PCP Nurse Practitioner Family; Visit Provider Nurse Practitioner Family
DX: Z12.39 Encounter for other screening for malignant neoplasm of breast (principal); R22.41 Localized swelling, mass and lump, right lower limb
CPT/HCPCS: 76881; 77063; 77067

== ENCOUNTER 2022-11-28 00:41 | Outpatient (CLI) | payer MEDICAID, SELFPAY ==
--- NOTE | 2022-11-28 | DI.US_ITS ---
Exam(s) MG MAMMO SCREEN CALL BACK UNI US BREAST RT LIMITED EXAM: MG MAMMO SCREEN CALL BACK UNI CLINICAL HISTORY: ? INCREASE NODULE RT BREAST R92.8 ABNL MAMMO. TECHNIQUE: Craniocaudal and mediolateral oblique spot compression digital Mammography views of the r ightbreast with Tomosynthesis and right breast ultrasound. COMPARISON: MG Diagnostic Right Mammo from 07/31/2015 MG MG mammo screening from 06/03/2018 MG MG MAMMO SCREENING from 07/11/2019 MG MG MAMMO SCREENING from 07/27/2020 MG MG MAMMO SCREENING from 11/24/2022 US US BREAST RT LIMITED from 11/28/2022 FINDINGS: Mammography/Tomosynthesis: Masses/Architectural Distortion: 2 circumscribed nodules persist on the additional views in the poste rior, medial right breast. Microcalcifictions: No suspicious pleomorphic-type are seen. Skin Thickening/Nipple Retraction: None. Right breast US: Echotexture: Normal appearance of the glandular tissue. Shadowing: No suspicious foci. Cyst: Multiple small cysts, largest measuring 7 millimeters. Solid lesions: None seen. Ductal dilation: None. IMPRESSION: 1. No evidence of malignancy is noted. 2. Unless there is more urgent need, follow-up screening mammography is recommended in 1 year.. 3. The findings were discussed with the patient on the date of the examination. BI-RADS Category 2 - Benign Findings Breast Density - Category C - Heterogeneously dense A mammogram that demonstrates density of C or D indicates the patient's breast tissue is dense. Dense breast tissue is very common and is not abnormal, but dense breast tissue can make it harder to find cancer on a mammogram. Also, dense breast tissue may increase their breast cancer risk. This informa tion about the result of the mammogram report was provided to the patient to raise their awareness. U se this report when you speak with the patient about their risks for breast cancer, which includes th eir family history. At that time, you may recommend for more screening tests (Ultrasound or MRI) as t hey might be useful based on their risk. A negative radiographic report should not delay biopsy if a dominant or clinically suspicious mass is present. Up to ten percent of cancers are not identified on mammography. A negative report may reinforce clinical impression. Adenosis and dense breasts may obscure an underlying neoplasm. False positive reports average 6 to 10%. Patient will receive a letter notifying them of these results.
== END 2022-11-28 01:01 ==
LOC: DI 00:41
PROVIDERS: PCP Nurse Practitioner Family; Visit Provider Nurse Practitioner Family
DX: R92.8 Other abnormal and inconclusive findings on diagnostic imaging of breast (principal)
CPT/HCPCS: 76642; 77063; 77067

== ENCOUNTER → 2023-11-30 03:20 | Outpatient (CLI) | payer MEDICAID, SELFPAY ==
--- NOTE | 2023-11-30 07:00 | DI.MAMMO_ITS ---
Exam(s) MAMMO SCREENING EXAM: MAMMO SCREENING CLINICAL HISTORY: screening,z12.39 TECHNIQUE: Bilateral full field digital CC and MLO mammographic images were obtained with 3D tomosyn thesis and utilizing computer aided detection (CAD). COMPARISON: Available for comparison. FINDINGS: Masses/Architectural Distortion: There is stable nodule seen in the right breast. No new nodules are seen. No suspicious areas of architectural distortion are seen. Microcalcifications: No suspicious pleomorphic-type are seen. Skin Thickening/Nipple Retraction: None. IMPRESSION: 1. No significant interval change with no specific features of malignancy noted. 2. Unless there is more urgent need, screening mammography is recommended, as per [employer] guidelines. BI-RADS Category 2 - Benign Findings Breast Density - Category C - Heterogeneously dense Breast density category C or D implies that the patient has dense breast tissue. Dense breast tissue is very common and is not abnormal but dense breast tissue can make it harder to find cancer on a ma mmogram. Also, dense breast tissue may increase their breast cancer risk. This information about the result of the mammogram report was provided to the patient to raise their awareness. Use this report when you speak with the patient about their risks for breast cancer, which includes their family hist ory. At that time, you may recommend for more screening tests (Ultrasound or MRI) as they might be us eful based on their risk. A negative radiographic report should not delay biopsy if a dominant or clinically suspicious mass is present. Up to ten percent of cancers are not identified on mammography. A negative report may reinforce clinical impression. Adenosis and dense breasts may obscure an underlying neoplasm. False positive reports average 6 to 10%. Patient will receive a letter notifying them of these results.
== END ==
PROVIDERS: PCP Nurse Practitioner Family; Visit Provider Nurse Practitioner
DX: Z12.31 Encounter for screening mammogram for malignant neoplasm of breast (principal)
CPT/HCPCS: 77063; 77067

== ENCOUNTER 2023-11-30 06:00 | Outpatient (CLI) | payer MEDICAID, SELFPAY ==
[2023-11-30 07:41] LABS: Abs Immature Grans 0.02 10^3/uL (0.0-0.06); Absolute Basophil Count 0.05 10^3/uL (0.0-0.2); Absolute Eosinophil Count 0.21 10^3/uL (0.0-0.7); Absolute Monocyte Count 0.47 10^3/uL (0.1-0.8); Absolute Neutrophil Count 5.15 10^3/uL (1.2-6.7); Basophils % 0.6; Eosinophils % 2.6; HCT 48.1 % (36.0-46.0); HGB 15.9 g/dL (11.2-15.7); Immature Grans % 0.3; Lymphocytes % 26.3; MCH 34.3 pg (27.0-33.0); MCHC 33.1 % (32.0-36.0); MCV 104 fL (80-95); MPV 10.2 fL (8.0-11.0); Monocytes % 5.9; Neutrophils % 64.3; Platelet Count 240 10^3/uL (130-400); RBC 4.63 10^6/uL (3.93-5.22); RDW 12.4 % (11.7-14.6)
[2023-11-30 08:00] LABS: ALT 125 U/L (14-59); AST 144 U/L (15-37); Alkaline Phosphatase 176 U/L (46-116); Anion Gap 10.3 mmol/L (3-11); BUN 7 mg/dL (7-18); CO2 26.7 mmol/L (21.0-32.0); CREATININE 0.8 mg/dL (0.55-1.02); Calcium 9.7 mg/dL (8.5-10.1); Calculated LDL 196 mg/dL (<100); Chloride 102 mmol/L (98-107); Cholesterol 305 mg/dL (<200); Estimated GFR 85.89 (mL/min/1.73m2); Glucose 100 mg/dL (74-106); HDL Cholesterol 81 mg/dL (40-60); Potassium 3.9 mmol/L (3.5-5.1); Sodium 139 mmol/L (136-145); Total Protein 7.4 g/dL (6.4-8.2); Triglyceride 141 mg/dL (<150)
== END 2023-11-30 06:01 | disposition home or self-care (01) ==
LOC: LBO 06:00
PROVIDERS: PCP Nurse Practitioner Family; Visit Provider Nurse Practitioner
DX: E78.5 Hyperlipidemia, unspecified (principal); I10 Essential (primary) hypertension
CPT/HCPCS: 36415; 80053; 80061; 85025

== ENCOUNTER 2024-12-15 01:35 | Outpatient (CLI) | payer MEDICAID, SELFPAY ==
--- NOTE | 2024-12-15 06:15 | DI.MAMMO_ITS ---
Exam(s) MAMMO SCREENING EXAM: MAMMO SCREENING CLINICAL HISTORY: screening,z12.39 TECHNIQUE: Bilateral full field digital CC and MLO mammographic images were obtained with 3D tomosyn thesis and utilizing computer aided detection (CAD). COMPARISON: Available for comparison. FINDINGS: Masses/Architectural Distortion: There is a well-circumscribed nodule in the medial right breast at a bout 2-3 o'clock posteriorly which has shown slight interval increase in size. It measures 9 mm comp ared to 7 mm on the prior examination. There are no areas of architectural distortion. Microcalcifications: No suspicious pleomorphic-type are seen. Skin Thickening/Nipple Retraction: None. IMPRESSION: 1. Slight interval increase in size of a well-circumscribed nodule in the medial right breast. 2. Spot compression views are requested for further evaluation. Ultrasound may be indicated at that time. BI-RADS Category 0 - Incomplete: Need additional imaging evaluation Breast Density - Category C - Heterogeneously dense Breast density category C or D implies that the patient has dense breast tissue. Dense breast tissue is very common and is not abnormal but dense breast tissue can make it harder to find cancer on a ma mmogram. Also, dense breast tissue may increase their breast cancer risk. This information about the result of the mammogram report was provided to the patient to raise their awareness. Use this report when you speak with the patient about their risks for breast cancer, which includes their family hist ory. At that time, you may recommend for more screening tests (Ultrasound or MRI) as they might be us eful based on their risk. A negative radiographic report should not delay biopsy if a dominant or clinically suspicious mass is present. Up to ten percent of cancers are not identified on mammography. A negative report may reinforce clinical impression. Adenosis and dense breasts may obscure an underlying neoplasm. False positive reports average 6 to 10%. Patient will receive a letter notifying them of these results.
== END 2024-12-15 01:55 ==
LOC: DI 01:36
PROVIDERS: PCP Nurse Practitioner Family; Visit Provider Nurse Practitioner
DX: Z12.31 Encounter for screening mammogram for malignant neoplasm of breast (principal); R92.333 Mammographic heterogeneous density, bilateral breasts
CPT/HCPCS: 77063; 77067

== ENCOUNTER 2024-12-19 01:47 | Outpatient (CLI) | payer MEDICAID, SELFPAY ==
--- NOTE | 2024-12-19 | DI.US_ITS ---
Exam(s) MG MAMMO SCREEN CALL BACK UNI US BREAST RT COMPLETE EXAM: MG MAMMO SCREEN CALL BACK UNI-RIGHT AND COMPLETE RIGHT BREAST ULTRASOUND CLINICAL HISTORY: F/U MAMMO, SLIGHT INTERVAL INCREASE IN SIZE NODULE MEDIAL RT BREAST. TECHNIQUE: Unilateral RIGHT BREAST spot mammographic images obtained with 3D tomosynthesisand utiliz ing computer aided detection (CAD). . Complete RIGHT breast Ultrasound was also performed, including all 4 quadrants, the retroareolar bridget on, and the ipsilateral axilla. COMPARISON: Prior mammograms were reviewed. Prior ultrasound examination of 11/28/2022 was also rev iewed. This additional imaging was performed due to findings described on the recent screening mammo gram of 12/15/2024. FINDINGS: DIAGNOSTIC MAMMOGRAM: Spot compression view of the nodular density in the medial aspect of the right breast shows this nodu le persisting.We proceeded with ultrasound COMPLETE RIGHT BREAST ULTRASOUND: Ultrasound performed today reveals an unchanged microcysts at the 1 o'clock position measuring 3 mm. At the peripheral 2 o'clock position there is an 8 x 3 mm microcyst which most probably corresponds t o the increased size similar appearing nodule on the recent mammogram. At 3 o'clock position there is an unchanged 8 x 3 mm microcyst also noted. At the 8 o'clock position there is an unchanged microcyst again noted. At the 11 o'clock position there is a 9 x 8 millimeter nodule which is slightly wider than taller and exhibits slightly increased through transmission but does exhibit internal echoes. This is possibly hemorrhagic cyst but will require close follow-up. The prior ultrasound exam 2 years ago was a limi jose miguel exam. Scanning of the ipsilateral axilla reveals no significant adenopathy. IMPRESSION: 1. The nodule which has increased in size on the mammogram is an increasing size benign microcyst at the 2 o'clock position. 2. Other microcysts in the right breast remains stable in size when compared to the ultrasound of 2022. 3. Incidentally noted on today's complete breast ultrasound is a 9 x 8 mm nodule at the 11 o'clock p osition as described above, exhibiting internal echoes. This requires close follow-up. Appropriate follow-up as discussed by myself with the patient today is repeat left breast imaging in 3 months, this to include repeat mammogram and ultrasound. The patient was informed of these findings and recommendations by myself prior to leaving the departm ent today. BI-RADS Category 3 - 3 month - Probably Benign Finding: Recommend follow-up ultrasound and mammograph y in 3 months Breast Density - Category C - The breast are heterogeneously dense, which may obscure small masses. Breast density Category C or D implies that the patient has dense breast tissue. Dense breast tissue can make it harder to find cancer on a mammogram. Dense breast tissue is also associated with an incr eased risk of breast cancer. This information about the result of the mammogram report was provided to the patient to raise their awareness. Use this report when you speak with the patient about their risks for breast cancer, which includes their family history. At that time, you may recommend additional screening tests (Ultrasoun d or MRI) as these tests may add significant information. A negative radiographic report should not delay biopsy if a dominant or clinically suspicious mass is present. Up to ten percent of cancers are not identified on mammography. A negative report may reinforce clinical impression. Adenosis and dense breasts may obscure an underlying neoplasm. False positive reports average 6 to 10%. Patient will receive a letter notifying them of these results.
== END 2024-12-19 02:07 ==
LOC: DI 01:47
PROVIDERS: PCP Nurse Practitioner Family; Visit Provider Nurse Practitioner
DX: Z12.31 Encounter for screening mammogram for malignant neoplasm of breast (principal); N60.01 Solitary cyst of right breast
CPT/HCPCS: 76642; 77063; 77067

== ENCOUNTER 2025-03-30 06:14 | Emergency (ER) | payer MEDICAID, SELFPAY ==
[2025-03-30 06:20] VITALS: BP 120/65; PULSE 84; RESP 18; TEMP 36.1; O2SAT 98
--- NOTE | 2025-03-30 06:45 | DI.RAD_ITS ---
Exam(s) XR TIB/FIB LT XR FOOT LT COMPLETE XR KNEE LT 3V AP,LAT,BERNIE EXAM: XR TIB/FIB LT CLINICAL HISTORY: pain s/p slamming into wall on boogey board. TECHNIQUE: 2D digital imaging was performed. COMPARISON: CR XR KNEE LT 3V AP,LAT,BERNIE from 03/30/2025 CR XR FOOT LT COMPLETE from 03/30/2025 FINDINGS: BONES: No acute fracture is present. No bony destructive lesion is seen. The femoral tibial joint spaces are maintained. There is spurring at the articular aspect of the patella. The ankle joint spaces are maintained. Are minimal degenerative changes at the 1st MTP joint. SOFT TISSUE: Swelling around the lateral malleolus. IMPRESSION: No acute abnormality. DATA REPOSITORY: RADIATION DOSE DELIVERED:
--- NOTE | 2025-03-30 06:55 | W.ED.GENAD ---
Discharge Plan Disposition Patient Disposition: Home Condition: Stable Discharge Details Clinical Impression: Contusion of left leg Primary Care Provider: Cortney Harvey ED Provider: Peyman Wiggins Home Meds and New Rx's Prescriptions: Continued vt-mu-[id number]-Ca carb-vit K 18 mg iron-400 mcg-500 mg tablet 1 tab PO DAILY cholecalciferol (vitamin D3) 25 mcg (1,000 unit) capsule 25 mcg PO DAILY propranolol 60 mg capsule,extended release 24 hr 60 mg PO QHS Qty: 90 3RF sumatriptan succinate [Imitrex STATdose Pen] 6 mg/0.5 mL pen injector 6 mg subcut ONCE PRN (Reason: migraine headache) Qty: 6 3RF Rx Instructions: You may repeat after 2 hours if needed. Do not exceed 2 doses in a 24 hour period varenicline tartrate [Chantix Starting Month Box] 0.5 mg (11)- 1 mg (42) tablets,dose pack See Rx Instructions PO PER PKG DIR Qty: 53 0RF Rx Instructions: PO PER PKG DIR varenicline tartrate [Chantix Continuing Month Box] 1 mg tablet 1 mg PO BID Qty: 56 2RF calcium carbonate-vitamin D3 1 EACH tablet 2 tab-cap PO DAILY Patient Comments: Takes 1200mg CA+ Rx Instructions: FOR OSTEOPENIA Take 2 tablets (total daily dose: 1200 mg Ca + 2000 units vitamin D3) daily gabapentin 300 mg capsule 600 mg PO QHS Qty: 180 3RF Discharge Instructions Additional Instructions: Your x-rays on my read did not show any fractures. If the radiologist sees anything of concern I will give you a call. If not improving within a week follow-up with your primary care provider. If you feel significantly more ill or have severe worsening pain return to the emergency department for reevaluation. HPI General Date/Time Provider Initiated Documentation: 03/30/25 06:50. Limitations to Documentation: no limitations. Information obtained by: patient. History of Present Illness 59 year old F presents to the emergency department with the chief complaint of left ankle and foot and knee pain s/p slamming into wall on boogey board, described as moderate, Quality is described as aching, Patient started experiencing this day(s) (1) and it has been constant. Rest improves symptom(s), Movement worsens symptoms . Patient notes no other symptoms.. Patient did receive the following treatments prior to arrival, none Related Data Home Medications ?Medication ?Instructions ?Recorded ?Confirmed calcium 1,000 mg (as 2 tab-cap PO DAILY 02/27/16 03/30/25 carbonate)-vitamin D3 20 mcg (800 unit) tablet [id number]-[id number]-avqk-FA-Ca carb-vit K 1 tab PO DAILY 08/30/19 03/30/25 18 mg iron-400 mcg-500 mg tablet cholecalciferol (vitamin D3) 25 25 mcg PO DAILY 01/18/21 03/30/25 mcg (1,000 unit) capsule gabapentin 300 mg capsule 600 mg (2 x 300 mg) PO QHS 06/07/24 03/30/25 headache #180 caps propranolol 60 mg capsule,24 60 mg PO QHS #90 caps 06/22/24 03/30/25 hr,extended release sumatriptan succinate 6 mg/0.5 mL 6 mg (0.5 mL) subcut ONCE PRN 06/22/24 03/30/25 subcutaneous pen injector (Imitrex migraine headache #6 mL STATdose Pen) varenicline tartrate 0.5 mg (11)-1 See Rx Instructions PO PER PKG DIR 10/24/24 03/30/25 mg (42) tablets in a dose pack #53 dose pk (Chantix Starting Month Box) varenicline tartrate 1 mg tablet 1 mg PO BID #56 tabs 10/24/24 03/30/25 (Chantix Continuing Month Box) Previous Rx's ?Medication ?Instructions ?Recorded gabapentin 300 mg capsule 600 mg (2 x 300 mg) PO QHS 06/07/24 headache #180 caps propranolol 60 mg capsule,24 60 mg PO QHS #90 caps 06/22/24 hr,extended release sumatriptan succinate 6 mg/0.5 mL 6 mg (0.5 mL) subcut ONCE PRN 06/22/24 subcutaneous pen injector (Imitrex migraine headache #6 mL STATdose Pen) varenicline tartrate 0.5 mg (11)-1 See Rx Instructions PO PER PKG DIR 10/24/24 mg (42) tablets in a dose pack #53 dose pk (Chantix Starting Month Box) varenicline tartrate 1 mg tablet 1 mg PO BID #56 tabs 10/24/24 (Chantix Continuing Month Box) Allergies Allergy/AdvReac Type Severity Reaction Status Date / Time vancomycin Allergy Severe unknown Verified 03/30/25 06:24 amoxicillin Allergy unknown Verified 03/30/25 06:24 hydromorphone (From Dilaudid) Allergy rash,trouble Verified 03/30/25 06:24 breathing Penicillins Allergy rash Verified 03/30/25 06:24 General Stated Complaint: Orthopedic GUILLERMO: 4 Review of Systems All systems reviewed & are unremarkable except as noted in HPI and below Constitutional Constitutional: Denies chills, Denies fever(s) and Denies weakness Cardiovascular Cardiovascular: Denies chest pain Gastrointestinal Gastrointestinal: Denies abdominal pain and Denies vomiting Neurologic Neurologic: Denies weakness Exam Const General: no acute distress Orientation: alert HENMT Head: normal to inspection Ears: external ears normal General nose exam: external nose normal Mouth: moist mucous membranes Eyes General: appearance normal, both eyes and all related structures Neck Neck: normal visual inspection Resp Effort & Inspection: normal respiratory effort and able to speak in complete sentences Cardio Rate: regular rate Neuro General: patient alert and patient oriented x3 Extrem General: full ROM and capillary refill normal Psych Mental Status: mental status grossly normal Course Vital Signs Vital signs: Vital Signs Temperature 36.1 C L 03/30/25 06:20 Pulse 84 03/30/25 06:20 Respiratory Rate 18 03/30/25 06:20 Blood Pressure 120/65 03/30/25 06:20 Pulse Oximetry 98 03/30/25 06:20 Temperature 36.1 C L 03/30/25 06:20 Temperature Source Oral 03/30/25 06:20 Pulse 84 03/30/25 06:20 Respiratory Rate 18 03/30/25 06:20 Blood Pressure 120/65 03/30/25 06:20 Pulse Oximetry 98 03/30/25 06:20 Pain Level 10 03/30/25 06:20 Medical Decision Making 59-year-old female comes in after she says she was at a water park yesterday and was laying on her body going on her belly and went off the back ramp and hit the back wall which is padded but her left leg fairly hard per the patient. She did not hit her head or have loss of consciousness. She says she has left medial anterior knee pain, mid anterior tibia pain, medial ankle pain and medial foot pain since. She says when she is sitting or laying down there is no pain but when she tries to walk it hurts. She denies any headache, neck pain, back pain, chest or abdomen pain. No pain in her upper extremities or her right leg. She has full range of motion of her knee and ankle and foot with intact sensation and pulses. She has tenderness over the medial knee joint line without visible palpable deformity. She also has tenderness in the mid tibia with no visible or palpable deformity. She has no posterior ankle pain and has intact plantarflexion with squeezing of the calf. She has tenderness in the medial malleolus of the left ankle and also of the mid left medial foot. I suspect contusions or sprains will obtain x-rays of the knee, tib-fib, ankle and foot to further evaluate for possible fracture X-rays on my read show no fractures. Patient does not want a wait for radiology read so I will call her if they see anything of concern. I advised to follow-up with her PCP if not improving within a week and return precautions given Differential Diagnosis Differential Diagnosis: Fracture, contusion, sprain Quality:SDOH Health Related Social Needs: Health related social needs details Not needed PFSH All Active Problems (Updated 03/30/25 @ 08:13 by Peyman Wiggins MD) Contusion of left leg (Acute) Category 3 mammography result with short follow-up interval suggested for probably benign finding (Acute ~12/2024) [facility] 2nd read Hypertension (Chronic) Anxiety (Chronic) Macrocytosis without anemia (Acute) Folate deficiency (Acute) Scalp pain (Acute) Tenosynovitis of hand (Acute ~01/2021) [facility] cellulitis of right hand Osteoarthritis of hands, bilateral (Chronic) Atrophic vaginitis (Chronic) Migraine headache without aura (Chronic) Left knee pain (Acute) 04/26/19 [facility] knee injections Orthovisc RH Osteopenia (Chronic 01/29/16) Dexa 01/29/16 Fem Neck -1.6 --> WHO FRAX major osteoporotic 3.4% & hip fx 0.2% --> bisphosphonates not indicated --> Ca & vit D3 Labile hypertension (Chronic 07/18/15) Other and unspecified hyperlipidemia (Chronic 08/03/15) 05/2022 labs: 10-year ASCVD risk = ~2.4% Medical History Trigger finger, right ring finger S/p release 12/18/2020 Trigger finger, right middle finger S/p release 12/18/2020 Tobacco use disorder (07/18/15) QUIT 11/2015 Chronic pain of right knee (07/18/15) S/p total knee replacement Chronic back pain (07/18/15) S/p surgery Surgical History Status post trigger finger release (~12/18/20) Dr. Erwin; right middle and ring fingers, wound dehiscet and infection w/ IV antibiotics knee surgery (12/16/97) R knee, [place], [place] back surgery (01/16/09) [place] Right, [place] (12/05/15) Dr. Erwin, [facility]. Hysterectomy, Laproscopic (03/15/07) For fibroids Family History Mother , Upper GI bleed at age 54. Substance abuse Alcoholism Essential hypertension Arthritis Bipolar 1 disorder Diabetes Depression Grandmother Arthritis Myocardial infarction Other Multiple sclerosis Social History Smoking/Tobacco Use Status: Former Tobacco Use Quit Date: 11/16/15 Quit status: has quit before Smoking risk assessment performed?: Yes Alcohol Intake: current Alcohol Intake frequency: a few times a month Substance use type: does not use Adopted: No Caregiver/Support person: No Foster care: No Household members: children and other Details: live in client Housing: house Number of Children: 2 number of grandchildren: 2 Communication Needs: None Education Level: high school Do you need help understanding health information?: Never current occupation: caregiver, 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 Pets and animals: Yes Pets and animals: dog(s) and other Details: Dog Bently (aussie/poodle mix) Sexually active: Yes Do you think of yourself as: straight/heterosexual Current gender identity: decline to answer Other: Boyfriend What is your relationship status?: refused to answer How often do you talk on the phone with friends or family?: once per week How often do you get together with friends or relatives?: decline to answer Do you belong to any clubs or organized social groups?: no Panel score (0-1 are the most socially isolated patients): 0 What type of physical activity do you participate in: walking Duration: 15-30 minutes/day Frequency: 3-4 times per week Seatbelt use: always Drive intox or ride w/intox minibus driver: No Water heater temp set <120 deg: Yes Working smoke detector in home: Yes Fire extinguisher in home: Yes Carbon monox detector in home: Yes Firearms in home: No Do you feel safe at home: Yes Do you feel safe in your relationship?: Yes
--- NOTE | 2025-03-30 09:15 | DI.VRAD_ITS ---
PROCEDURE INFORMATION: Exam: XR Left Knee Exam date and time: 03/30/2025 7:24 AM Age: 59 years old Clinical indication: Other: Pain TECHNIQUE: Imaging protocol: Radiologic exam of the left knee. Views: 3 views. COMPARISON: CR XR TIB/FIB LT 03/30/2025 7:22 AM FINDINGS: Bones/joints: There are mild degenerative changes of the knee joint, predominantly involving the medial joint compartment. The joint spaces are preserved. No acute fracture or malalignment. Soft tissues: Unremarkable. IMPRESSION: Mild osteoarthrosis. Dictated and Authenticated by: Rancho Woo MD. Orderin Feliciano Morley MD
--- NOTE | 2025-03-30 09:15 | DI.VRAD_ITS ---
PROCEDURE INFORMATION: Exam: XR Left Tibia and Fibula Exam date and time: 03/30/2025 7:22 AM Age: 59 years old Clinical indication: Other: Pain TECHNIQUE: Imaging protocol: Radiologic exam of the left tibia and fibula. Views: 2 views. COMPARISON: CR XR FOOT LT COMPLETE 03/30/2025 7:19 AM FINDINGS: Bones/joints: No acute fracture or malalignment. Soft tissues: Unremarkable. IMPRESSION: No acute fracture. Dictated and Authenticated by: Rancho Woo MD. Orderin Feliciano Morley MD
--- NOTE | 2025-03-30 09:17 | DI.VRAD_ITS ---
PROCEDURE INFORMATION: Exam: XR Left Foot Exam date and time: 03/30/2025 7:19 AM Age: 59 years old Clinical indication: Other: Pain TECHNIQUE: Imaging protocol: Radiologic exam of the left foot. Views: 3 or more views. COMPARISON: US SOFT TISSUE EXTREMITY 11/24/2022 7:03 AM FINDINGS: Bones/joints: Oblique lucency through the base of the 2nd metatarsal. No dislocation. Soft tissues: Unremarkable. IMPRESSION: Questionable 2nd metatarsal base fracture. Dictated and Authenticated by: Rancho Woo MD. Orderin Feliciano Morley MD
== END 2025-03-30 08:52 | disposition home or self-care (01) ==
PROVIDERS: Emergency Provider Emergency Medicine; PCP Nurse Practitioner Family
DX: S80.12XA Contusion of left lower leg, initial encounter (principal); W18.39XA Other fall on same level, initial encounter
CPT/HCPCS: 99284; 99283; 73562; 73590; 73630